=== PATIENT | male | born 2005 | race Caucasian/White ===

== ENCOUNTER → 2024-06-24 | Outpatient (CLI) | payer BC | END | disposition home or self-care (01) | LOC: RESCLI 09:00 | PROVIDERS: ATTEND Family Medicine | DX: K59.00 Constipation, unspecified (principal); F41.9 Anxiety disorder, unspecified; L70.9 Acne, unspecified; Z82.49 Family history of ischemic heart disease and other diseases of the circulatory system; Z79.899 Other long term (current) drug therapy ==